=== PATIENT | female | born 2000 | race Caucasian/White ===

== ENCOUNTER 2021-06-19 20:37 | Emergency (ER) | payer BC ==
[2021-06-19] MEDS ORDERED: diphenhydrAMINE 50 MG/ML SDV IVPUSH ONE (21:26)
[2021-06-19] MEDS ORDERED: Ondansetron 4 MG/2 ML SDV IVPUSH ONE (21:26)
[2021-06-19] MEDS ORDERED: Sodium Chloride 0.9% 1,000 ML IV STA (21:26)
[2021-06-19] MEDS ORDERED: Ketorolac 30 MG/ML SDV IVPUSH ONE (21:26)
[2021-06-19] MEDS ORDERED: Acetaminophen/Butalbital/Caffeine 325-50-40 MG Tab PO ONE (23:33)
[2021-06-19] MEDS ORDERED: Benztropine 1 MG Tab PO STA (23:35)
[2021-06-19] MEDS ORDERED: Haloperidol Lactate 5 MG/ML SDV IM ONE (23:35)
== END 2021-06-20 01:21 | disposition home or self-care (01) ==
LOC: JD.ED 20:37
DX: G43.909 Migraine, unspecified, not intractable, without status migrainosus (principal)
CPT/HCPCS: 96372; 96374; 96375; 99283; J1200; J1630; J1885; J2405; J7030